=== PATIENT | female | born 1980 | race Caucasian/White ===

== ENCOUNTER 2016-10-19 21:35 | Emergency (ER) ==
[2016-10-19 21:50] VITALS: BP 127/72; TEMP 99.2; BMI 20.9
[2016-10-19] MEDS ORDERED: SODIUM CHLORIDE 500 ML IV STA (22:08)
[2016-10-19] MEDS ORDERED: CLEOCIN 600 MG in SODIUM CHLORIDE 100 ML IV STA (22:08)
[2016-10-19] MEDS ORDERED: DECADRON 4 MG/ML SDV IVP STA (22:08)
[2016-10-19] MEDS ORDERED: CLEOCIN ONE (22:13)
[2016-10-19 22:25] LABS: BASOPHILS # (AUTO) 0.1 K/uL (0-0.2); BASOPHILS % (AUTO) 1.3 % (0.0-3.0); EOSINOPHILS # (AUTO) 0.8 K/ul (0.0-0.7); EOSINOPHILS % (AUTO) 8.2 % (0.0-7.0); HEMATOCRIT 35.9 % (37.0-47.0); HEMOGLOBIN 11.4 g/dl (12.0-16.0); IMMATURE GRANULOCYTE % (AUTO) 0.3 % (0.0-5.0); LYMPHOCYTES # (AUTO) 2.2 K/uL (0.60-3.4); LYMPHOCYTES % (AUTO) 22.7 (10.0-50.0); MEAN CORPUSCULAR HEMOGLOBIN 26.1 pg (27.0-31.0); MEAN CORPUSCULAR HGB CONC 31.8 (31.8-35.4); MEAN CORPUSCULAR VOLUME 82.2 fl (81.0-99.0); MONOCYTES # (AUTO) 0.7 K/uL (0.4-2.0); MONOCYTES % (AUTO) 6.7 (0-10); NEUTROPHILS # (AUTO) 5.9 K/ul (2.0-6.9); NEUTROPHILS % (AUTO) 60.8; PLATELET COUNT 284 10^3/uL (140-440); RED BLOOD COUNT 4.37 10^6/ul (4.20-5.40); WHITE BLOOD COUNT 9.77 K/ul (4.6-10.2)
[2016-10-19 22:43] LABS: ALBUMIN 3.5 g/dL (3.4-5.0); ALBUMIN/GLOBULIN RATIO 0.88; ANION GAP 16.7; BILIRUBIN,TOTAL 0.19 mg/dL (0.00-1.20); BUN/CREATININE RATIO 14.63; CALCIUM 8.9 mg/dL (8.2-10.2); CREATININE 0.82 mg/dL (0.60-1.30); POTASSIUM 3.7 mmol/L (3.5-5.10); TOTAL PROTEIN 7.5 g/dL (6.4-8.2); URIC ACID 3.2 mg/dL (2.4-6.0)
[2016-10-19 22:49] LABS: SERUM PREGNANCY INTERNAL QC INTERNAL QC VALID
[2016-10-19 22:58] LABS: ERYTHROCYTE SEDIMENTATION RATE 32 mm/hr (0-20); ESR INTERNAL QC INTERNAL QC VALID
--- NOTE | 2016-10-19 23:20 | CT ---
EXAM: CT scan of the right foot without contrast HISTORY: Swelling, redness TECHNIQUE: Imaging of the right foot was performed without contrast. Sagittal and coronal reconstr uctions and axial images were provided for interpretation. FINDINGS: No acute fractures are seen. No lytic or destructive processes are identified. There do es appear to be edema seen within the dorsal soft tissues of the mid foot and within the forefoot. There is edema seen within the medial and lateral and dorsal soft tissues of the hind foot. There i s no evidence of fluid collection. No radiopaque foreign bodies are seen. IMPRESSION: No acute fracture dislocation seen within the right foot. No evidence for osteomyelitis. Soft tissue swelling and edema seen within the right foot as described above. There is no evidence o f fluid collection.
--- NOTE | 2016-10-19 23:45 | ED.PDOC ---
General ED Provider: Dr. GIANNI DE LA ROSA-ER Chief Complaint: Foot Pain/Injury Stated Complaint: my foot is red and swollen--sonny been wading in the [place] Time Seen by Physician: 21:40 Mode of Arrival: Walk-In Information Source: Patient Exam Limitations: No limitations Nursing and Triage Documentation Reviewed and Agree: Yes Skin Complaint Exam - Skin Rash/Itching Complaint/Exam Onset/Duration: less than 24hrs Symptoms Are: Still present Initial Severity: Mild Current Severity: Mild Location: righ tfoot Potential Exposures: Reports: Unknown Aggravating: Reports: None Alleviating: Reports: None Associated Signs and Symptoms: Denies: Difficulty breathing, Fever, Chills Skin Findings: Present: Maculae Differential Diagnoses: Allergic Reaction, Contact Dermatitis, Impetigo, Other Review of Systems - Review Of Systems Constitutional: Reports: No symptoms Eyes: Reports: No symptoms Ears, Nose, Mouth, Throat: Reports: No symptoms Respiratory: Reports: No symptoms Cardiac: Reports: No symptoms GI: Reports: No symptoms : Reports: No symptoms Musculoskeletal: Reports: No symptoms Skin: Reports: Rash Neurological: Reports: No symptoms Endocrine: Reports: No symptoms Hematologic/Lymphatic: Reports: No symptoms All Other Systems: Reviewed and Negative Past Medical History - Past Medical History Previously Healthy: Yes Endocrine: Reports: Unknown Cardiovascular: Reports: Unknown Respiratory: Reports: Unknown Hematological: Reports: Unknown Gastrointestinal: Reports: Unknown Genitourinary: Reports: Unknown Neuro/Psych: Reports: Unknown Musculoskeletal: Reports: Unknown Cancer: Reports: Unknown Last Menstrual Period: PRESENTLY - Surgical History General Surgical History: Reports: Unknown - Family History Family History: Reports: Unknown - Social History Smoking Status: Current every day smoker, Heavy tobacco smoker Hx Substance Use: No Alcohol Screening: Occasionally Lives: With family - Immunizations Tetanus Shot up to Date: Yes Physical Exam - Physical Exam Appearance: Well-appearing, No pain distress, Well-nourished Eyes: STEPHANIE, EOMI, Conjunctiva clear ENT: Ears normal, Nose normal, Oropharynx normal Neck: Supple Respiratory: Airway patent Cardiovascular: RRR, Pulses normal, No rub, No murmur GI/: Soft Musculoskeletal: Normal strength Skin: Warm, Dry (erythema over anterior foot) Neurological: Sensation intact, Motor intact, Reflexes intact, Cranial nerves intact, Alert, Oriented Psychiatric: Affect appropriate Interpretation - Radiology Interpretation Radiology Interpretation By: Radiologist Radiology Results: Negative Exam Interpreted: CT Scan Critical Care Note - Critical Care Note Total Time (mins): 0 Course - Course Hematology/Chemistry: 10/19/16 22:15 10/19/16 22:15 Orders, Labs, Meds: Lab Review 10/19/16 22:15 WBC 9.77 RBC 4.37 Hgb 11.4 L Hct 35.9 L MCV 82.2 MCH 26.1 L MCHC 31.8 RDW Coeff of Jase 17.2 H Plt Count 284 Immature Gran % (Auto) 0.3 Neut % (Auto) 60.8 Lymph % (Auto) 22.7 [place] % (Auto) 6.7 Eos % (Auto) 8.2 H Baso % (Auto) 1.3 Immature Gran # (Auto) 0.0 Neut # 5.9 Lymph # 2.2 [place] # 0.7 Eos # 0.8 H Baso # 0.1 ESR 32 H Sodium 140 Potassium 3.7 Chloride 103 Carbon Dioxide 24 Anion Gap 16.7 BUN 12 Creatinine 0.82 Estimated GFR (MDRD) 80.00 BUN/Creatinine Ratio 14.63 Glucose 87 Uric Acid 3.2 Calcium 8.9 Total Bilirubin 0.19 AST 17 ALT 11 L Alkaline Phosphatase 78 Total Protein 7.5 Albumin 3.5 Globulin 4.0 Albumin/Globulin Ratio 0.88 Serum , Qual Negative Orders Category Date Time Status ED IV/MEDIPORT/POWERPORT .ONCE EMERGENCY 10/19/16 22:08 Active BLOOD CULTURE Stat LAB 10/19/16 22:15 Received C-REACTIVE PROTEIN Stat LAB 10/19/16 22:15 Received CBC W/ AUTO DIFF Stat LAB 10/19/16 22:15 Completed COMPREHENSIVE METABOLIC PANEL Stat LAB 10/19/16 22:15 Completed ESR Stat LAB 10/19/16 22:15 Completed SERUM Stat LAB 10/19/16 22:15 Completed URIC ACID Stat LAB 10/19/16 22:15 Completed 0.9 % Sodium Chloride [Saline Flush] MEDS 10/19/16 22:08 Ordered 1 syr IVF PRN PRN Clindamycin Phosphate Inj [Cleocin] MEDS 10/19/16 22:13 Discontinued 600 mg .ROUTE .STK-MED ONE Clindamycin Phosphate Inj [Cleocin] 600 mg MEDS 10/19/16 22:08 Discontinued 0.9 % Sodium Chloride [Sodium Chloride] 100 ml IV NOW Dexamethasone 4 mg/ml Inj [Decadron 4 mg/ml Sdv] MEDS 10/19/16 22:08 Discontinued 4 mg IVP ONCE STA Sodium Chloride 0.9% [Sodium Chloride] 500 ml MEDS 10/19/16 22:08 Active IV 30 mls/hr CT FOOT RIGHT WITHOUT CONTRAST Stat RADS 10/19/16 22:10 Completed Medications Generic Name Dose Route Start Last Admin Trade Name Frepriscilla PRN Reason Stop Dose Admin Sodium Chloride 500 mls @ 30 mls/hr 10/19/16 22:08 10/19/16 22:27 Sodium Chloride IV 10/20/16 14:47 30 mls/hr .[id number] STA Administration Sodium Chloride 1 syr 10/19/16 22:08 Saline Flush IVF PRN PRN To flush IV Discontinued Medications Generic Name Dose Route Start Last Admin Trade Name Freq PRN Reason Stop Dose Admin Dexamethasone Sodium Phosphate 4 mg 10/19/16 22:08 10/19/16 22:25 Decadron 4 Mg/Ml Sdv IVP 10/19/16 22:09 4 mg ONCE STA Administration Clindamycin Phosphate 600 mg/ 104 mls @ 100 mls/hr 10/19/16 22:08 10/19/16 22 :25 Sodium Chloride IV 10/19/16 23:10 100 mls/hr NOW STA Administration Vital Signs: Temp Pulse Resp BP Pulse Ox 10/19/16 21:36 99.2 F 111 H 18 127/72 100 Departure - Departure Time of Disposition: 23:45 Disposition: HOME SELF-CARE Discharge Problem: Cellulitis Qualifiers: Site of cellulitis: unspecified site Qualifier Code: (L03.90) Cellulitis, unspecified Instructions: Cellulitis (ED) Condition: Good Pt referred to PMD for follow-up: Yes Additional Instructions: clindamycin 150mg tid x 7days--try to keep the foot elevated as much as [id number] in 48hrs if redness is worsenedd Allergies/Adverse Reactions: Allergies Penicillins Adverse Reaction (Verified 10/19/16 21:47) Anaphylaxis Home Medications: Ambulatory Orders 1 [No Reported Medications] 10/19/16 Disposition Discussed With: Patient
== END 2016-10-19 23:51 | disposition home or self-care (01) ==
LOC: ED 21:35
DX: L03.115 Cellulitis of right lower limb (principal); F17.210 Nicotine dependence, cigarettes, uncomplicated
CPT/HCPCS: 36415; 80053; 84550; 84703; 85025; 85651; 86140; 87040; 96366; 96374; 99283